=== PATIENT | male | born 1960 | race Caucasian/White ===

== ENCOUNTER 2021-02-13 14:08 | Emergency (ER) | payer MEDICAID ==
[~2021-02-13] VITALS: Ht 177.8 cm; Wt 99.8 kg
--- NOTE | 2021-02-13 14:18 | NUR ---
PT HENRY FROM HOME, STATES HE WAS MOPPING THE STAIRS WHEN HE FELL, ENDORSES +LOC. PLACED ON MONITOR. VSS AWAITING MD HENSLEY.
--- NOTE | 2021-02-13 15:01 | NUR ---
DR PORTER AT BEDSIDE FOR EVAL.
[2021-02-13] MEDS ORDERED: IBUP-1955 PO (15:18)
[2021-02-13 15:30] VITALS: BP 152/97
--- NOTE | 2021-02-13 15:30 | NUR ---
Patient discharged to home in stable condition. Written and verbal after care instructions given. Patient verbalizes understanding of instruction.
== END 2021-02-13 15:31 | disposition home or self-care (01) ==
LOC: ER 14:10
DX: S06.0X0A Concussion without loss of consciousness, initial encounter (principal); S00.03XA Contusion of scalp, initial encounter; F31.9 Bipolar disorder, unspecified; F20.9 Schizophrenia, unspecified; Z90.89 Acquired absence of other organs; W01.0XXA Fall on same level from slipping, tripping and stumbling without subsequent striking against object, initial encounter; Y93.89 Activity, other specified; Y92.89 Other specified places as the place of occurrence of the external cause; Y99.8 Other external cause status
CPT/HCPCS: 70450-TC

== ENCOUNTER 2021-02-16 08:14 | Emergency (ER) | payer MEDICAID ==
[~2021-02-16] VITALS: Ht 172.7 cm; Wt 113.4 kg
[~2021-02-16 08:14] MED LIST: IBUP-1955 PO
--- NOTE | 2021-02-16 08:20 | NUR ---
c/o dizziness since last night, "feels like the room is spinning" Patient a/ox4, breathing even and unlabored, no sob noted. Needs attended. Kept comfortable.
[2021-02-16] MEDS ORDERED: ONDANSETRON HCL/PF 4 MG/2 ML VIAL ONE (08:42)
--- NOTE | 2021-02-16 08:47 | NUR ---
IV LINE ESTABLISHED BLOOD DRAWN AND SENT TO LAB.
--- NOTE | 2021-02-16 08:49 | NUR ---
Patient taken to ct.
[2021-02-16 08:53] LABS: BASOPHILS % (AUTO) 0.6 % (0.0-2.0); EOSINOPHILS % (AUTO) 2.5 % (0.0-6.0); HEMATOCRIT 43 % (39-51); HEMOGLOBIN 14.8 g/dL (13.5-17.5); LYMPHOCYTES # (AUTO) 1.7 /CMM (0.8-4.8); MEAN CORPUSCULAR HGB CONC 34 g/dl (31.0-36.0); MEAN CORPUSCULAR VOLUME 87 fL (80-96); MONOCYTES # (AUTO) 0.6 /CMM (0.1-1.30); MONOCYTES % (AUTO) 9.5 % (2.0-12.0); NEUTROPHILS # (AUTO) 4.2 /CMM (1.8-8.9); NEUTROPHILS % (AUTO) 62.4 % (43.0-81.0); PLATELET COUNT (AUTO) 269 /CMM (150-450); RED BLOOD CELL COUNT(AUTO) 4.97 MIL/uL (4.5-6.0); WHITE BLOOD COUNT (AUTO) 6.8 K/uL (4.3-11.0)
[2021-02-16 09:00] LABS: CALCIUM, SERUM 8.7 mg/dL (8.5-10.1); CARBON DIOXIDE 26 mmol/L (21-32); CHLORIDE 102 mmol/L (98-107); CREATININE 1.3 mg/dL (0.6-1.3); GLUCOSE 186 mg/dL (74-106); SODIUM SERUM 140 mmol/L (136-145); UREA NITROGEN, BLOOD 10 mg/dL (7-18)
[2021-02-16] MEDS ORDERED: ONDANSETRON HCL/PF - ER 4 MG/2 ML VIAL IV ONE (09:00)
[2021-02-16] MEDS ORDERED: IV NS 0.9% 1,000 ML BAG IV ONE (09:00)
[2021-02-16 09:06] LABS: ALANINE AMINOTRANSFERASE 36 U/L (12-78); ALBUMIN 3.7 g/dL (3.4-5.0); ALKALINE PHOSPHATASE 80 U/L (46-116); ASPARTATE AMINOTRANSFERASE 20 U/L (15-37); BILIRUBIN,DIRECT 0.1 mg/dL (0.0-0.2); BILIRUBIN,TOTAL 0.2 mg/dL (0.2-1.0); TOTAL PROTEIN, SERUM 7.1 g/dL (6.4-8.2)
[2021-02-16] MEDS ORDERED: MECLIZINE HCL 12.5 MG TABLET PO ONE (11:00)
[2021-02-16] MEDS ORDERED: MECLIZINE HCL 25 MG TABLET ONE (11:03)
[2021-02-16] MEDS ORDERED: MECL-159 PO (11:35)
[2021-02-16] MEDS ORDERED: ONDA4TAB11 PO (11:35)
--- NOTE | 2021-02-16 11:48 | NUR ---
Bp improved 158/98. Patient sts he feels better, ambulatory with steady gait. No distress noted. IV removed. Catheter intact and site benign. Pressure and 4x4 applied to site. No bleeding noted.Patient discharged to home in stable condition. Written and verbal after care instructions given. Patient verbalizes understanding of instruction.
[2021-02-16 11:51] VITALS: BP 150/85
== END 2021-02-16 11:51 | disposition home or self-care (01) ==
LOC: ER 08:19
DX: S09.8XXA Other specified injuries of head, initial encounter (principal); R42 Dizziness and giddiness; F20.9 Schizophrenia, unspecified; W01.0XXA Fall on same level from slipping, tripping and stumbling without subsequent striking against object, initial encounter; Y93.89 Activity, other specified; Y92.89 Other specified places as the place of occurrence of the external cause; Y99.8 Other external cause status
CPT/HCPCS: 36415; 70450; 80048; 80076; 84484; 85025; 85730; 93005; 96361; 96374; 99285; J2405; J7030; J8597

== ENCOUNTER 2021-02-19 20:17 | Inpatient (IN) | payer MEDICAID ==
[~2021-02-19] VITALS: Ht 172.7 cm; Wt 122.0 kg
[~2021-02-19 20:17] MED LIST changes: +MECL-159 PO; +ONDA4TAB11 PO
--- NOTE | 2021-02-19 20:21 | NUR ---
PT AAOX4. AMBULATORY WITH STEADY GAIT. BIBSELF C/O ABD PAIN AND NAUSEA. PT STATED HE HAS BEEN CONSTIPATED. PLACED IN BED 10 ON MONITOR AND PULSE OX.
[2021-02-19] MEDS ORDERED: ONDANSETRON HCL/PF 4 MG/2 ML VIAL ONE (20:40)
[2021-02-19] MEDS ORDERED: MAGNESIUM HYDROXIDE 30 ML UDC ONE (20:40)
[2021-02-19] MEDS ORDERED: NA PHOS,M-B/NA PHOS,DI-BA 1 EA ENEMA RC ONE ×4 (20:40→23:00)
[2021-02-19] MEDS ORDERED: ACETAMINOPHEN ES 500 MG TABLET ONE (20:41)
[2021-02-19 20:54] LABS: BASOPHILS # (AUTO) 0.1 /CMM (0.0-0.2); BASOPHILS % (AUTO) 0.2 % (0.0-2.0); EOSINOPHILS % (AUTO) 0.1 % (0.0-6.0); HEMATOCRIT 48 % (39-51); HEMOGLOBIN 16.4 g/dL (13.5-17.5); LYMPHOCYTES % (AUTO) 7.5 % (20.0-44.0); MEAN CORPUSCULAR HGB CONC 34 g/dl (31.0-36.0); MEAN CORPUSCULAR VOLUME 88 fL (80-96); MONOCYTES # (AUTO) 1.7 /CMM (0.1-1.30); MONOCYTES % (AUTO) 6.2 % (2.0-12.0); NEUTROPHILS # (AUTO) 23.3 /CMM (1.8-8.9); PLATELET COUNT (AUTO) 353 /CMM (150-450); RED BLOOD CELL COUNT(AUTO) 5.52 MIL/uL (4.5-6.0); WHITE BLOOD COUNT (AUTO) 27.1 K/uL (4.3-11.0)
[2021-02-19] MEDS ORDERED: ACETAMINOPHEN 325 MG TABLET PO ONE (21:00)
[2021-02-19] MEDS ORDERED: MAGNESIUM HYDROXIDE 30 ML UDC PO ONE (21:00)
[2021-02-19] MEDS ORDERED: ONDANSETRON HCL/PF 4 MG/2 ML VIAL IVP ONE (21:00)
[2021-02-19] MEDS ORDERED: IV NS 0.9% 1,000 ML BAG IV ONE ×2 (21:00→23:00)
[2021-02-19 21:02] LABS: CALCIUM, SERUM 9.5 mg/dL (8.5-10.1); CREATININE 1.6 mg/dL (0.6-1.3); POTASSIUM 3.9 mmol/L (3.5-5.1)
[2021-02-19 21:13] LABS: ALBUMIN 4.5 g/dL (3.4-5.0); BILIRUBIN,DIRECT 0.1 mg/dL (0.0-0.2); BILIRUBIN,TOTAL 0.4 mg/dL (0.2-1.0); TOTAL PROTEIN, SERUM 8.1 g/dL (6.4-8.2)
--- NOTE | 2021-02-19 21:21 | NUR ---
PT REMAINS IN THE RESTROOM, STATED HE DID HAVE ONE BM.
--- NOTE | 2021-02-19 21:40 | NUR ---
BROUGHT TO CT
[2021-02-19] MEDS ORDERED: CT SWABBABLE VALVE TRANS SET 1 EA INFUS.SET MC ONE (21:41)
[2021-02-19] MEDS ORDERED: IOHEXOL-300 100 ML VIAL IV ONE (21:41)
[2021-02-19] MEDS ORDERED: IV NS 0.9% 250 ML IV ONE (21:41)
--- NOTE | 2021-02-19 23:12 | NUR ---
REMAINS HAVING PAIN, PA AWARE. WILL MEDICATE.
--- NOTE | 2021-02-19 23:18 | NUR ---
MARALID SWABBED, SENT TO LAB.
[2021-02-19] MEDS ORDERED: CIPROFLOXACIN IV RTU 200 ML IV ONE (23:20)
[2021-02-19] MEDS ORDERED: TRAMADOL HCL 50 MG TABLET ONE (23:20)
[2021-02-19] MEDS ORDERED: FLAGYL/NS RTU 500 MG/100 ML PIGGYBACK IV ONE (23:30)
[2021-02-19] MEDS ORDERED: TRAMADOL HCL 50 MG TABLET PO ONE (23:30)
[2021-02-19] MEDS ORDERED: CIPROFLOXACIN IV RTU 400 MG in PREMIX 1 EA IV ONE (23:30)
--- NOTE | 2021-02-19 23:34 | NUR ---
AMBULATED TO THE RESTROOM.
--- NOTE | 2021-02-19 23:50 | NUR ---
PT IS HAVING BOWEL MOVEMENTS. I HELD THE SECOND ENEMA. PA AWARE.
[2021-02-19 23:57] LABS: BILIRUBIN,URINE SMALL (NEGATIVE); COLOR,URINE DARK YELLOW (YELLOW); LEUKOCYTE ESTERASE ,URINE NEGATIVE (NEGATIVE); NITRITE, URINE NEGATIVE (NEGATIVE); PROTEIN,URINE TRACE mg/dl (NEGATIVE); UGLUCOSE NEGATIVE (NEGATIVE); UROBILINOGEN,URINE 0.2 EU/dL (0.2)
[2021-02-20] MEDS ORDERED: METRONIDAZOLE 500MG/ NS 100ML 100 ML IV ONE (00:36)
--- NOTE | 2021-02-20 01:07 | NUR ---
BED ASSIGNMENT 311-1
[2021-02-20 01:15] LABS: BACTERIA,URINE None seen /HPF (None Seen); RBC,URINE 0-2 /HPF (0-2); SQUAMOUS EPITHELIAL CELL,UR Few /HPF (None Seen); WBC,URINE 0-2 /HPF (0-3)
[2021-02-20 01:16] LABS: CALCIUM OXALATE CRYSTALS,UR Many /HPF (None Seen)
[2021-02-20] MEDS ORDERED: IV NS 0.9% 500 ML IV ONE (01:30)
[2021-02-20] MEDS ORDERED: IV NS 0.9% 1,000 ML IV ONE (01:30)
--- NOTE | 2021-02-20 01:37 | NUR ---
REPORT GIVEN TO CRISTY CHINO FOR [facility]OOKE
[2021-02-20] MEDS ORDERED: ACETAMINOPHEN 325 MG TABLET PO PRN (02:00)
[2021-02-20] MEDS ORDERED: HYDROCODONE/APAP 5/325MG TABLET PO PRN (02:00)
[2021-02-20] MEDS ORDERED: ONDANSETRON HCL/PF 4 MG/2 ML VIAL IVP PRN (02:00)
[2021-02-20] MEDS ORDERED: MAGNESIUM HYDROXIDE 30 ML UDC PO PRN (02:00)
[2021-02-20] MEDS ORDERED: MAG HYDROX/AL HYDROX/SIMETH 30 ML UDC PO PRN (02:00)
[2021-02-20] MEDS ORDERED: PIPERACILLIN /TAZOBACTAM 3.375 G in IV D5W 50 ML IV SCH ×2 (02:00→06:00)
[2021-02-20] MEDS ORDERED: MORPHINE SULFATE INJ 2 MG/ML DISP.SYRIN IV PRN (02:00)
[2021-02-20 02:24] VITALS: BP 134/85
--- NOTE | 2021-02-20 02:24 | NUR ---
MS CLIENT SERVICES ACCOUNT MANAGER NOTE PT TRANSPORTED VIA GURNEY TO UNIT AT THIS TIME. PT IS ON BEDREST. NO SOB NOTED. NO S/S OF RESPIRATORY DISTRESS. PT STABLE ON ROOM AIR. PT DENIES PAIN OR DISCOMFORT AT THIS TIME. IV ACCESS IN LEFT HAND #18, INTACT AND PATENT. SKIN IS INTACT. PT ORIENTED TO STAFF, ROOM, AND UNIT. SAFETY AND ASPIRATION PRECAUTIONS IN PLACE AND MAINTAINED AT ALL TIMES. BED IN LOWEST LOCKED POSITION, HOB ELEVATED, SIDE RAILS UP X2. CALL LIGHT AND TABLE WITHIN REACH. WILL CONTINUE TO MONITOR.
[2021-02-20] MEDS ORDERED: PIPERACILLIN /TAZOBACTAM 3.375 G VIAL IV ONE (03:30)
--- NOTE | 2021-02-20 06:25 | NUR ---
IV ACCESS INSERTED IN RIGHT HAND #22, GOOD BLOOD RETURN NOTED. INTACT, PATENT, AND FLUSHING WELL. PT TOLERATED WELL. WILL CONTINUE WITH PLAN OF CARE.
--- NOTE | 2021-02-20 06:27 | NUR ---
MS RN CLOSING NOTE PT IS AWAKE IN BED AT THIS TIME. A/O X4. PT IS ON BEDREST. NO SOB NOTED. NO S/S OF RESPIRATORY DISTRESS. PT STABLE ON ROOM AIR. PT DENIES PAIN OR DISCOMFORT AT THIS TIME. IV ACCESS IS INTACT, PATENT, AND FLUSHING WELL. ALL NEEDS HAVE BEEN MET. SAFETY AND ASPIRATION PRECAUTIONS IN PLACE AND MAINTAINED AT ALL TIMES. BED IN LOWEST LOCKED POSITION, HOB ELEVATED, SIDE RAILS UP X2. CALL LIGHT AND TABLE WITHIN REACH. WILL ENDORSE TO ONCOMING NURSE FOR CONTINUITY OF CARE.
--- NOTE | 2021-02-20 07:15 | NUR ---
MS RN OPENING NOTE PT IS AWAKE IN BED AT THIS TIME. A/O X4. PT IS ON BEDREST. NO SOB NOTED. NO S/S OF RESPIRATORY DISTRESS. PT STABLE ON ROOM AIR. PT DENIES PAIN OR DISCOMFORT AT THIS TIME. IV ACCESS IS INTACT, PATENT, AND FLUSHING WELL. ALL NEEDS HAVE BEEN MET. SAFETY AND ASPIRATION PRECAUTIONS IN PLACE AND MAINTAINED AT ALL TIMES. BED IN LOWEST LOCKED POSITION, HOB ELEVATED, SIDE RAILS UP X2. CALL LIGHT AND TABLE WITHIN REACH.
[2021-02-20] MEDS ORDERED: PANTOPRAZOLE 40 MG TABLET.DR PO SCH (07:30)
[2021-02-20 09:11] VITALS: BP 120/75
[2021-02-20] MEDS: PIPERACILLIN /TAZOBACTAM 3.375 G in IV D5W 100 ML IV SCH ×2 (09:40→16:02)
[2021-02-20] MEDS ORDERED: ENOXAPARIN SODIUM 40 MG/0.4 ML DISP.SYRIN SQ SCH (14:00)
[2021-02-20 16:00] VITALS: BP 121/90
--- NOTE | 2021-02-20 19:55 | NUR ---
MS RN OPENING NOTE PATIENT A/OX4; ABLE TO MAKE NEEDS KNOWN. ON ROOM AIR TOLERATING WELL WITH NO SOB. DENIES PAIN OR DISCOMFORT AT THIS TIME. R HAND #22G S/L & L HAND #22G S/L; PATENT AND INTACT. DENIES N/V/D. SAFETY MEASURES IN PLACE: BED IN LOWEST LOCKED POSITION, SIDE RAILS UPX2, CALL LIGHT WITHIN EASY REACH. PATIENT IN STABLE CONDITION; WILL CONTINUE PLAN OF CARE.
[2021-02-20 20:00] VITALS: BP 136/77
[2021-02-20] MEDS ORDERED: QUETIAPINE FUMARATE 100 MG TABLET PO SCH (22:00)
[2021-02-21] MEDS: PIPERACILLIN /TAZOBACTAM 3.375 G in IV D5W 100 ML IV SCH (00:35)
--- NOTE | 2021-02-21 06:02 | NUR ---
MS LULÚ NOTE - SPECIMEN URINE SPECIMEN COLLECTED, LABELED, AND PICKED UP BY LAB
--- NOTE | 2021-02-21 06:15 | NUR ---
MS RN CLOSING NOTE PATIENT A/OX4; ABLE TO MAKE NEEDS KNOWN. ON ROOM AIR TOLERATING WELL WITH NO SOB. DENIES PAIN OR DISCOMFORT AT THIS TIME. R HAND #22G S/L & L HAND #22G S/L; PATENT AND INTACT. DENIES PAIN OR N/V/D. SAFETY MEASURES IN PLACE: BED IN LOWEST LOCKED POSITION, SIDE RAILS UPX2, CALL LIGHT WITHIN EASY REACH. EDUCATED PATIENT THAT URINE AND STOOL SPECIMEN NEEDS TO COLLECTED FOR LABS; PATIENT VERBALIZED UNDERSTANDING. PATIENT IN STABLE CONDITION; WILL ENDORSE PLAN OF CARE TO ONCOMING MORNING RN.
[2021-02-21 06:45] LABS: BASOPHILS % (AUTO) 0.6 % (0.0-2.0); HEMATOCRIT 43 % (39-51); HEMOGLOBIN 14.3 g/dL (13.5-17.5); LYMPHOCYTES # (AUTO) 1.6 /CMM (0.8-4.8); LYMPHOCYTES % (AUTO) 20.6 % (20.0-44.0); MEAN CORPUSCULAR HGB CONC 34 g/dl (31.0-36.0); MEAN CORPUSCULAR VOLUME 88 fL (80-96); MONOCYTES # (AUTO) 0.8 /CMM (0.1-1.30); MONOCYTES % (AUTO) 10.2 % (2.0-12.0); NEUTROPHILS % (AUTO) 65.6 % (43.0-81.0); PLATELET COUNT (AUTO) 256 /CMM (150-450); RED BLOOD CELL COUNT(AUTO) 4.83 MIL/uL (4.5-6.0); WHITE BLOOD COUNT (AUTO) 7.6 K/uL (4.3-11.0)
[2021-02-21 06:52] LABS: BILIRUBIN,URINE NEGATIVE (NEGATIVE); COLOR,URINE YELLOW (YELLOW); LEUKOCYTE ESTERASE ,URINE NEGATIVE (NEGATIVE); NITRITE, URINE NEGATIVE (NEGATIVE); PH,URINE 6.5 (5.0-8.0); PROTEIN,URINE NEGATIVE (NEGATIVE); UGLUCOSE NEGATIVE (NEGATIVE); UROBILINOGEN,URINE 0.2 EU/dL (0.2)
[2021-02-21 07:05] LABS: CALCIUM, SERUM 8.4 mg/dL (8.5-10.1); CREATININE 1.3 mg/dL (0.6-1.3); MAGNESIUM 2.2 mg/dL (1.8-2.4); PHOSPHORUS 3.3 mg/dL (2.5-4.9); POTASSIUM 4.1 mmol/L (3.5-5.1)
[2021-02-21 07:14] LABS: CREATININE, URINE 81.4 MG/DL (30.0-125.0); URINE TOTAL PROTEIN 9.5 mg/dL (0-11.9)
[2021-02-21 07:51] LABS: EOSINOPHIL,URINE None Seen
[2021-02-21 08:00] VITALS: BP 152/71
--- NOTE | 2021-02-21 08:53 | NUR ---
MSRN NOTE PT LEFT AMA @ 3440 , SIGNED AMA FORM, ALL BELONGINGS ACCOUNTED FOR, EXPLAINED RISK FOR AMA AND ADVISED TO RETURN TO ER IF ANY EMERGENCIES OCCUR, ALL IV LINES SAFELY REMOVED. BELONGINGS AND MEDICATIONS GIVEN AND ESCORTED DOWN TO LOBBY
[2021-02-21] MEDS ORDERED: CIPR-262 PO (10:10)
[2021-02-21] MEDS ORDERED: METR500T PO (10:10)
[2021-02-22 07:07] LABS: PTH, INTACT 27 pg/mL (15-65)
[2021-02-23 05:07] LABS: *SPE A/G RATIO 1.3 (0.7-1.7); *SPE ALBUMIN 3.5 g/dL (2.9-4.4); *SPE ALPHA-1-GLOBULIN 0.3 g/dL (0.0-0.4); *SPE ALPHA-2-GLOBULIN 0.7 g/dL (0.4-1.0); *SPE BETA GLOBULIN 1.2 g/dL (0.7-1.3); *SPE GLOBULIN, TOTAL 2.7 g/dL (2.2-3.9); *SPE M-SPIKE Not Observed g/dL (Not Observed); *SPEGAMMA GLOBULIN 0.6 g/dL (0.4-1.8)
== END 2021-02-21 09:00 | disposition left against medical advice (07) | DRG 720 ==
LOC: ER 20:20 → MED 02-20 01:15
PROVIDERS: ADMIT Registered Nurse; ATTEND Nurse Practitioner Acute Care
DX: A41.9 Sepsis, unspecified organism (principal); N17.0 Acute kidney failure with tubular necrosis; A09 Infectious gastroenteritis and colitis, unspecified; K59.00 Constipation, unspecified; F20.9 Schizophrenia, unspecified; F31.9 Bipolar disorder, unspecified; E66.01 Morbid (severe) obesity due to excess calories; K76.0 Fatty (change of) liver, not elsewhere classified; Z20.822 Contact with and (suspected) exposure to COVID-19; Z68.41 Body mass index [BMI] 40.0-44.9, adult
CPT/HCPCS: 36415; 71045-TC; 76770-TC; 80048-TC; 80076-TC; 81001; 82550-TC; 82570-TC; 83605-TC; 83735-TC; 83970; 84100-TC; 84155; 84155-TC; 84165; 84300-TC; 85025-TC; 87040-TC; 87081-TC; A4216; C9803; G0378; J0744; J1650; J2405; J2543; J7030; J7040; J7050; J7060; Q9967